=== PATIENT | male | born 1950 | race Caucasian/White ===

== ENCOUNTER → 2017-03-13 | Outpatient (CLI) | payer MEDICARE, MEDICAID ==
[2017-03-13 11:12] LABS: ABSOLUTE EOSINOPHILS # (AUTO) 0.3 10^3/uL (0.0-0.6); ABSOLUTE LYMPHOCYTES (AUTO) 1.4 10^3/uL (0.5-4.7); ABSOLUTE MONOCYTES (AUTO) 0.5 10^3/uL (0.1-1.4); BASOPHILS % (AUTO) 0.5 % (0-2); EOSINOPHILS % (AUTO) 4.7 % (0-6); HEMATOCRIT 37.7 % (37.9-51.0); HEMOGLOBIN 13.1 g/dL (13.5-17.0); HGB HCT DIFFERENCE 1.6; LYMPHOCYTES % (AUTO) 21.8 % (13-45); MEAN CORPUSCULAR HEMOGLOBIN 30.5 pg (27.0-33.4); MEAN CORPUSCULAR HGB CONC 34.8 g/dL (32.0-36.0); MEAN CORPUSCULAR VOLUME 88 fl (80-97); MONOCYTES % (AUTO) 8.7 % (3-13); RED BLOOD COUNT 4.31 10^6/uL (4.35-5.55); SEGMENTED NEUTROPHILS % (AUTO) 64.3 % (42-78); WHITE BLOOD COUNT 6.3 10^3/uL (4.0-10.5)
[2017-03-13 11:35] LABS: ALANINE AMINOTRANSFERASE 87 U/L (21-72); ALBUMIN 4.3 g/dL (3.5-5.0); ALKALINE PHOSPHATASE 206 U/L (38-126); ANION GAP 13 (5-19); ASPARTATE AMINO TRANSFERASE 71 U/L (17-59); BILIRUBIN,DIRECT 0.6 mg/dL (0.0-0.4); BILIRUBIN,TOTAL 1.3 mg/dL (0.2-1.3); BLOOD UREA NITROGEN 14 mg/dL (7-20); CALCIUM 9.3 mg/dL (8.4-10.2); CARBON DIOXIDE 25 mmol/L (22-30); CHLORIDE 106 mmol/L (98-107); CHOLESTEROL 164.24 mg/dL (0-200); CREATININE RESULT 1.15 mg/dL (0.52-1.25); Direct HDL 40 mg/dL (>40); GLUCOSE 93 mg/dL (75-110); POTASSIUM 3.9 mmol/L (3.6-5.0); SODIUM 143.8 mmol/L (137-145); TOTAL PROTEIN 7.8 g/dL (6.3-8.2); TRIGLYCERIDES 201 mg/dL (<150); URIC ACID 4.7 mg/dL (3.5-8.5)
[2017-03-13 11:46] LABS: DIRECT LDL 72 mg/dL (<100)
[2017-03-13 12:09] LABS: VLDL CHOLESTEROL 40.2 mg/dL (10-31)
== END ==
LOC: OD 10:04
PROVIDERS: ATTEND Internal Medicine
DX: E11.9 Type 2 diabetes mellitus without complications (principal); I10 Essential (primary) hypertension; E78.5 Hyperlipidemia, unspecified; R35.1 Nocturia; M10.9 Gout, unspecified
CPT/HCPCS: 36415; 80053; 80061; 82043; 83036; 84153; 84443; 84550; 85025

== ENCOUNTER → 2018-06-25 | Outpatient (CLI) | payer MEDICARE, MEDICAID ==
[2018-06-25 09:06] LABS: ABSOLUTE EOSINOPHILS # (AUTO) 0.3 10^3/uL (0.0-0.6); ABSOLUTE LYMPHOCYTES (AUTO) 1.5 10^3/uL (0.5-4.7); ABSOLUTE MONOCYTES (AUTO) 0.6 10^3/uL (0.1-1.4); ABSOLUTE NEUT (AUTO) 4.4 10^3/uL (1.7-8.2); BASOPHILS % (AUTO) 0.7 % (0-2); EOSINOPHILS % (AUTO) 4.6 % (0-6); HEMATOCRIT 39.7 % (37.9-51.0); HEMOGLOBIN 13.9 g/dL (13.5-17.0); LYMPHOCYTES % (AUTO) 21.8 % (13-45); MEAN CORPUSCULAR HEMOGLOBIN 30.7 pg (27.0-33.4); MEAN CORPUSCULAR HGB CONC 34.9 g/dL (32.0-36.0); MEAN CORPUSCULAR VOLUME 88 fl (80-97); MONOCYTES % (AUTO) 9.3 % (3-13); PLATELET COUNT 140 10^3/uL (150-450); RED BLOOD COUNT 4.51 10^6/uL (4.35-5.55); RED CELL DISTRIBUTION WIDTH 14.7 % (11.5-14.0); SEGMENTED NEUTROPHILS % (AUTO) 63.6 % (42-78); TOTAL CELLS COUNTED % (AUTO) 100 %; WHITE BLOOD COUNT 6.9 10^3/uL (4.0-10.5)
[2018-06-25 09:34] LABS: ALANINE AMINOTRANSFERASE 53 U/L (21-72); ALBUMIN 3.5 g/dL (3.5-5.0); ALKALINE PHOSPHATASE 163 U/L (38-126); ANION GAP 5 (5-19); ASPARTATE AMINO TRANSFERASE 60 U/L (17-59); BILIRUBIN,DIRECT 0.4 mg/dL (0.0-0.4); BILIRUBIN,TOTAL 1.8 mg/dL (0.2-1.3); BLOOD UREA NITROGEN 14 mg/dL (7-20); CALCIUM 8.7 mg/dL (8.4-10.2); CARBON DIOXIDE 31 mmol/L (22-30); CHLORIDE 106 mmol/L (98-107); CHOLESTEROL 137.71 mg/dL (0-200); GLUCOSE 71 mg/dL (75-110); POTASSIUM 3.8 mmol/L (3.6-5.0); TOTAL PROTEIN 6.7 g/dL (6.3-8.2); TRIGLYCERIDES 76 mg/dL (<150)
[2018-06-25 09:45] LABS: DIRECT LDL 68 mg/dL (<100)
== END ==
LOC: LAB 08:50
PROVIDERS: ATTEND Family Medicine Geriatric Medicine
DX: E11.8 Type 2 diabetes mellitus with unspecified complications (principal); I10 Essential (primary) hypertension; E78.5 Hyperlipidemia, unspecified; E03.9 Hypothyroidism, unspecified
CPT/HCPCS: 36415; 80053; 80061; 83036; 84443; 85025

== ENCOUNTER → 2018-07-31 | Outpatient (CLI) | payer MEDICARE, MEDICAID ==
[~2018-07-31] MED LIST: REGADENOSON INJ 0.4 MG/5 ML DISP.SYRIN IV ONE
--- NOTE | 2018-08-03 20:54 | DRAGON STRESS TEST REPORT ---
Intravenous Lexiscan Cardiolite stress test using single photon emmision computerized tomography. Date of procedure: 07/31/2018. Ordering Provider: Dr. Sanjay Beckford. Patient's status: Out Patient. Indication: Exertional dyspnea. Coronary risk factors: Age, diabetes mellitus, hypertension, dyslipidemia, and family history of coronary artery disease. Resting EKG: Sinus Rhythm. Within Normal Limits Stress EKG: No changes of ischemia. The patient had no chest pain or discomfort, and there were no arrhythmias seen. Reason for termination: Protocol. Conclusions: Normal EKG and hemodynamic response to IV Lexiscan. Nuclear data: At rest the patient was given 12.42 millicuries of technetium 99m sestamibi injected intravenously. As per protocol rest non gated SPECT images were obtained. Subsequently the patient was given intravenous Lexiscan at a dose of 0.4 mg in 5 mL intravenously, followed by flush with normal saline. Subsequently the stress dose of 36.4 millicuries of technetium 99m sestamibi was injected intravenously. As per protocol stress gated images were obtained. Nuclear interpretation: Review of images showed that all segments of the myocardium had normal perfusion at rest, and normal perfusion post stress with IV Lexiscan. All segments of the myocardium had normal motion, contraction, and thickening by gated study. T. I D. ratio was normal at 0.96. There is no transient ischemic dilatation of the left ventricle. Computer read rest, and stress left ventricular ejection fraction were 54 %, and 57 %, respectively. Visually both the stress and rest ejection fractions were normal, and greater than 55%. Conclusion: 1. There is no scintigraphic evidence of Lexiscan induced myocardial ischemia. 2. There is no scintigraphic evidence of myocardial infarction/scar. Recommendations: Aggressive risk factor modification, and treating the underlying co- morbidities. [facility]
== END ==
LOC: RAD 07:11
PROVIDERS: ATTEND Internal Medicine
DX: R06.09 Other forms of dyspnea (principal)
CPT/HCPCS: 93017; 78452; A9500; J2785; Q9969

== ENCOUNTER → 2018-09-19 | Outpatient (CLI) | payer MEDICARE, MEDICAID ==
[2018-09-19 09:34] LABS: ANION GAP 7 (5-19); BLOOD UREA NITROGEN 18 mg/dL (7-20); CALCIUM 8.4 mg/dL (8.4-10.2); CARBON DIOXIDE 29 mmol/L (22-30); CHLORIDE 106 mmol/L (98-107); GLUCOSE 152 mg/dL (75-110); POTASSIUM 3.1 mmol/L (3.6-5.0); SODIUM 141.9 mmol/L (137-145)
--- NOTE | 2018-09-19 11:21 | RADIOLOGY REPORT (SQ) ---
EXAM DESCRIPTION: VENOUS UNILATERAL LOWER COMPLETED DATE/TIME: 09/19/2018 10:30 am REASON FOR STUDY: RLE PAIN I82.401 ACUTE EMBOLISM AND THOMBOS UNSP DEEP VEINS OF R LOW COMPARISON: None. TECHNIQUE: Dynamic and static pyle scale and color images acquired of the right leg venous system. S elected spectral images acquired with additional compression and augmentation maneuvers. The contrala teral common femoral vein and saphenofemoral junction were also imaged. Images stored on PACS. LIMITATIONS: None. FINDINGS: COMMON FEMORAL: Normal phasicity, compression and augmentation. No visualized echogenic ma terial on pyle scale. No defects on color images. FEMORAL: Normal compression and augmentation. No visualized echogenic material on pyle scale. No defe cts on color images. POPLITEAL: Normal compression, augmentation. No visualized echogenic material on pyle scale. No defec ts on color images. CALF VESSELS: Normal compression, augmentation. No visualized echogenic material on pyle scale. No de fects on color images. GSV and SSV: Normal compression, augmentation. No visualized echogenic material on pyle scale. No def ects on color images. ANY DEEP VENOUS INSUFFICIENCY: Not evaluated. ANY EVIDENCE OF POPLITEAL CYST: No. OTHER: No other significant finding. CONTRALATERAL COMMON FEMORAL VEIN AND SAPHENOFEMORAL JUNCTION: Normal phasicity, compression and augmentation. No visualized echogenic material on pyle scale. No de fects on color images. IMPRESSION: NO EVIDENCE DVT OR SVT IN THE RIGHT LEG. TECHNICAL DOCUMENTATION: JOB ID: [id number] [employer]- All Rights Reserved Reading location - IP/workstation name: [email or web address]
== END ==
LOC: SP 09:00
PROVIDERS: ATTEND Internal Medicine
DX: I82.401 Acute embolism and thrombosis of unspecified deep veins of right lower extremity (principal); N19 Unspecified kidney failure; E83.42 Hypomagnesemia
CPT/HCPCS: 36415; 80048; 83735; 93971

== ENCOUNTER → 2018-10-22 | Outpatient (CLI) | payer MEDICARE, MEDICAID ==
[2018-10-16 14:03] LABS: ABSOLUTE EOSINOPHILS # (AUTO) 0.3 10^3/uL (0.0-0.6); ABSOLUTE LYMPHOCYTES (AUTO) 0.8 10^3/uL (0.5-4.7); ABSOLUTE MONOCYTES (AUTO) 0.7 10^3/uL (0.1-1.4); ABSOLUTE NEUT (AUTO) 4.2 10^3/uL (1.7-8.2); BASOPHILS % (AUTO) 0.4 % (0-2); EOSINOPHILS % (AUTO) 4.9 % (0-6); HEMATOCRIT 34.5 % (37.9-51.0); HEMOGLOBIN 11.8 g/dL (13.5-17.0); LYMPHOCYTES % (AUTO) 13.8 % (13-45); MEAN CORPUSCULAR HGB CONC 34.3 g/dL (32.0-36.0); MEAN CORPUSCULAR VOLUME 88 fl (80-97); MONOCYTES % (AUTO) 11.4 % (3-13); PLATELET COUNT 128 10^3/uL (150-450); RED BLOOD COUNT 3.94 10^6/uL (4.35-5.55); RED CELL DISTRIBUTION WIDTH 14.5 % (11.5-14.0); SEGMENTED NEUTROPHILS % (AUTO) 69.5 % (42-78); TOTAL CELLS COUNTED % (AUTO) 100 %
[2018-10-16 14:28] LABS: ALANINE AMINOTRANSFERASE 42 U/L (21-72); ALBUMIN 2.7 g/dL (3.5-5.0); ALKALINE PHOSPHATASE 162 U/L (38-126); ANION GAP 6 (5-19); ASPARTATE AMINO TRANSFERASE 48 U/L (17-59); BILIRUBIN,DIRECT 0.4 mg/dL (0.0-0.4); BILIRUBIN,TOTAL 1.4 mg/dL (0.2-1.3); BLOOD UREA NITROGEN 14 mg/dL (7-20); CALCIUM 8.4 mg/dL (8.4-10.2); CARBON DIOXIDE 28 mmol/L (22-30); CHLORIDE 104 mmol/L (98-107); GLUCOSE 94 mg/dL (75-110); POTASSIUM 3.4 mmol/L (3.6-5.0); TOTAL PROTEIN 5.8 g/dL (6.3-8.2)
--- NOTE | 2018-10-22 09:50 | RADIOLOGY REPORT (SQ) ---
EXAM DESCRIPTION: CT ABD/PELVIS WITH IV ORAL COMPLETED DATE/TIME: 10/22/2018 8:38 am REASON FOR STUDY: DVRTCLOS OF INTEST, PART UNSP, W/O PERF OR ABSCESS W/O BLEED (K57.90) K21.9 GASTR O-ESOPHAGEAL REFLUX DISEASE WITHOUT ESOPHAGITIS K57.90 DVRTCLOS OF INTEST, PART UNSP, W/O PERF OR AB SCESS W/ COMPARISON: Abdominal ultrasound 06/08/2011 CT abdomen pelvis 01/28/2014 TECHNIQUE: CT scan of the abdomen and pelvis performed using helical scanning technique with dynamic intravenous contrast injection. Patient drank oral contrast. Images reviewed with lung, soft tissue , and bone windows. Reconstructed coronal and sagittal MPR images reviewed. Delayed images for evalua tion of the urinary system also acquired. All images stored on PACS. All CT scanners at this facility use dose modulation, iterative reconstruction, and/or weight based d osing when appropriate to reduce radiation dose to as low as reasonably achievable (ALARA). [facility]: Dose Right [facility]: CareDose [facility]: Dose Right [facility]: Teradose 4D [facility]: Vascular Imaging CONTRAST TYPE AND DOSE: contrast/concentration: Isovue 350.00 mg/ml; Total Contrast Delivered: 90.0 ml; Total Saline Delivered: 70.0 ml RENAL FUNCTION: Creatinine 1.08 RADIATION DOSE: CT Rad equipment meets quality standard of care and radiation dose reduction techniq ues were employed. CTDIvol: 7.2 - 8.4 mGy. DLP: 877 mGy-cm.. LIMITATIONS: None. FINDINGS: LOWER CHEST: Trace bilateral pleural effusions are present with bibasilar atelectasis. Mi ld cardiomegaly. Small hiatal hernia. LIVER: Small with nodular contour from cirrhosis. Recannulized umbilical vein. Moderate ascites bon e SPLEEN: 14 cm in length. Multiple varices at the splenic hilum PANCREAS: No masses. No significant calcifications. No adjacent inflammation or peripancreatic fluid collections. Pancreatic duct not dilated. GALLBLADDER: No identified stones by CT criteria. No inflammatory changes to suggest cholecystitis. ADRENAL GLANDS: No significant masses or asymmetry. RIGHT KIDNEY AND URETER: No solid masses. 12 mm right midpole renal stone, measuring 1,160 Hounsfie ld units. No hydronephrosis or hydroureter. LEFT KIDNEY AND URETER: No solid masses. 2.5 cm left midpole renal cortical cyst. No significant ca lcifications. No hydronephrosis or hydroureter. AORTA AND VESSELS: No aneurysm. No dissection. Renal arteries, SMA, celiac without stenosis. RETROPERITONEUM: No retroperitoneal adenopathy, hemorrhage or masses. BOWEL AND PERITONEAL CAVITY: Patient drank oral contrast. No bowel obstruction. No CT evidence of c olonic diverticulosis. Moderate amount of ascites in the abdomen pelvis APPENDIX: Normal. PELVIS: Old right inguinal hernia repair with calcified nodule along the right inguinal canal formerly [facility] ed from 2013, measuring about 3 cm in size. Moderate pelvic Free fluid. 7 mm bladder stone on axial image 91. ABDOMINAL WALL: No masses. No hernias. BONES: No significant or acute findings. OTHER: No other significant finding. IMPRESSION: Cirrhosis, portal hypertension and ascites Patient drank oral contrast. No CT evidence of bowel obstruction or diverticulitis TECHNICAL DOCUMENTATION: JOB ID: [id number] Quality ID # [id number]: Final reports with documentation of one or more dose reduction techniques (e.g., Au tomated exposure control, adjustment of the mA and/or kV according to patient size, use of iterative reconstruction technique) 2010 [employer]- All Rights Reserved Reading location - IP/workstation name: [email or web address]
== END ==
LOC: RAD 10-16 13:09
PROVIDERS: ATTEND Internal Medicine
DX: K57.90 Diverticulosis of intestine, part unspecified, without perforation or abscess without bleeding (principal); K21.9 Gastro-esophageal reflux disease without esophagitis; R53.83 Other fatigue
CPT/HCPCS: 36415; 74177; 80053; 85025

== ENCOUNTER 2019-10-31 11:46 | Observation (INO) | payer MEDICARE, MEDICAID ==
[2019-10-31] MEDS ORDERED: NORMAL SALINE 1000 ML 1,000 ML IV ONE ×2 (12:07→13:52)
--- NOTE | 2019-10-31 12:09 | ER Document Report ---
ED Medical Screen (RME) - General Chief Complaint: Blurred Vision Stated Complaint: BLURRED VISION Time Seen by Provider: 10/31/19 12:02 Primary Care Provider: ORLANDO CARRANZA MD [Primary Care Provider] - Follow up as needed Mode of Arrival: Ambulatory Information source: Patient Notes: 69-year-old male patient presenting to the emergency department chief complaint of her blurred vision over the last 3 days. Patient also reports excessive thirst and excessive urination over the last 1 to 2 weeks. He states that he used to be an insulin-dependent diabetic however 6 months ago his doctor told him that his "diabetes resolved" and took him off of his insulin. He states he took his blood sugar this morning and it was over 400. He denies any current nausea or vomiting but reports he has intermittent nausea with vomiting, last time he vomited was 2 weeks ago. Exam: Patient alert, oriented, no acute distress noted. Lung sounds clear and equal bilaterally. I have greeted and performed a rapid initial assessment of this patient. A comprehensive ED assessment and evaluation of the patient, analysis of test results and completion of the medical decision making process will be conducted by additional ED providers. I have specifically instructed the patient or family members with the patient to immediately return to any nursing staff should anything change in the patient's condition or with their chief complaint. TRAVEL OUTSIDE OF THE [place] IN LAST 30 DAYS: No - Related Data Allergies/Adverse Reactions: Penicillins Allergy (Verified 05/12/13 11:10) Past Medical History - Past Medical History Cardiac Medical History: Reports: Hx Hypertension Endocrine Medical History: Reports: Hx Diabetes Mellitus Type 1, Hx Diabetes Mellitus Type 2 - Immunizations Hx Diphtheria, Pertussis, Tetanus Vaccination: Yes Physical Exam - Vital signs Vitals: Temp Pulse Resp BP Pulse Ox 97.7 F 56 L 18 154/80 H 98 10/31/19 11:52 10/31/19 11:52 10/31/19 11:52 10/31/19 11:52 10/31/19 11:52 Course - Vital Signs Vital signs: Temp Pulse Resp BP Pulse Ox 97.7 F 56 L 18 154/80 H 98 10/31/19 11:52 10/31/19 11:52 10/31/19 11:52 10/31/19 11:52 10/31/19 11:52 Doctor's Discharge - Discharge Referrals: ORLANDO CARRANZA MD [Primary Care Provider] - Follow up as needed
[2019-10-31 12:39] LABS: ABSOLUTE EOSINOPHILS # (AUTO) 0.4 10^3/uL (0.0-0.6); ABSOLUTE LYMPHOCYTES (AUTO) 1.5 10^3/uL (0.5-4.7); ABSOLUTE MONOCYTES (AUTO) 0.6 10^3/uL (0.1-1.4); ABSOLUTE NEUT (AUTO) 3.4 10^3/uL (1.7-8.2); BASOPHILS % (AUTO) 0.6 % (0-2); EOSINOPHILS % (AUTO) 6.2 % (0-6); HEMATOCRIT 33.8 % (37.9-51.0); HEMOGLOBIN 12.2 g/dL (13.5-17.0); LYMPHOCYTES % (AUTO) 24.8 % (13-45); MEAN CORPUSCULAR HEMOGLOBIN 32.5 pg (27.0-33.4); MEAN CORPUSCULAR HGB CONC 36.3 g/dL (32.0-36.0); MEAN CORPUSCULAR VOLUME 90 fl (80-97); MONOCYTES % (AUTO) 10.9 % (3-13); PLATELET COUNT 107 10^3/uL (150-450); RED BLOOD COUNT 3.77 10^6/uL (4.35-5.55); RED CELL DISTRIBUTION WIDTH 13.4 % (11.5-14.0); SEGMENTED NEUTROPHILS % (AUTO) 57.5 % (42-78); TOTAL CELLS COUNTED % (AUTO) 100 %; WHITE BLOOD COUNT 5.9 10^3/uL (4.0-10.5)
[2019-10-31 12:49] LABS: VENOUS BLOOD BASE EXCESS -1.2 mmol/L; VENOUS BLOOD HCO3 23.3 mmol/L (20-32); VENOUS BLOOD PCO2 38.8 mmHg (35-63); VENOUS BLOOD PH 7.4 (7.30-7.42)
--- NOTE | 2019-10-31 12:52 | ER Document Report ---
ED General - General Chief Complaint: Blurred Vision Stated Complaint: BLURRED VISION Time Seen by Provider: 10/31/19 12:02 Primary Care Provider: ORLANDO CARRANZA MD [Primary Care Provider] - Follow up as needed Mode of Arrival: Ambulatory Notes: Patient is 69-year-old male who presents emergency department with a chief complaint of blurred vision. Patient states that he has been having blurred vision for the past 2 to 3 weeks. Patient states that he was taken off his diabetes medication because his diabetes "went away" per his primary care provider. Patient checked his blood sugar this morning and states that it was in the 400s. States that he has urinary frequency. TRAVEL OUTSIDE OF THE [place] IN LAST 30 DAYS: No - Related Data Allergies/Adverse Reactions: oxycodone Allergy (Verified 10/31/19 12:09) Generalized Itching Penicillins Allergy (Verified 05/12/13 11:10) Past Medical History - General Information source: Patient - Social History Smoking Status: Never Smoker Frequency of alcohol use: None Drug Abuse: None Family History: Reviewed & Not Pertinent Patient has homicidal ideation: No - Past Medical History Cardiac Medical History: Reports: Hx Hypertension Endocrine Medical History: Reports: Hx Diabetes Mellitus Type 1, Hx Diabetes Mellitus Type 2 - Immunizations Hx Diphtheria, Pertussis, Tetanus Vaccination: Yes Review of Systems - Review of Systems Notes: REVIEW OF SYSTEMS: CONSTITUTIONAL : Denies recent illness. Denies recent unintentional weight loss. Denies fever, chills, or sweats. EENT: See HPI. Denies nasal or sinus congestion. CARDIOVASCULAR: Denies chest pain. RESPIRATORY: Denies shortness of breath, cough, congestion, difficulty breathing, or wheezing. GASTROINTESTINAL: Denies nausea, vomiting, and diarrhea. Denies abdominal pain. Denies constipation. GENITOURINARY: See HPI. MUSCULOSKELETAL: Denies neck and back pain. Denies joint pain or swelling. SKIN: Denies rash, itchiness, or lesions HEMATOLOGIC : Denies easy bruising or bleeding. LYMPHATIC: Denies swollen, painful, enlarged glands. NEUROLOGICAL: Denies no numbness or tingling denies weakness. Denies headache. Denies altered mental status. Denies alteration in speech. PSYCHIATRIC: Denies stress, anxiety, alteration in sleep patterns, or depression. All other systems reviewed and negative. Physical Exam - Vital signs Vitals: Temp Pulse Resp BP Pulse Ox 97.7 F 56 L 18 154/80 H 98 10/31/19 11:52 10/31/19 11:52 10/31/19 11:52 10/31/19 11:52 10/31/19 11:52 - Notes Notes: PHYSICAL EXAMINATION: GENERAL: Appears well, mildly disheveled, no acute distress. HEAD: Normocephalic, atraumatic. EYES: PERRL, conjunctiva normal, all extraocular movements intact, sclera non icteric ENT: Moist mucous membranes. NECK: Supple, no noticeable swelling, redness, rash. Normal range of motion. LUNGS: Equal breath sounds bilaterally and clear to auscultation. No wheezes ra les or rhonchi. CARDIOVASCULAR: S1-S2, regular rate, regular rhythm. Radial pulses 2+, normal. ABDOMEN: Normoactive bowel sounds. Soft, nontender, no guarding, no rebound tenderness, and no masses palpated. EXTREMITIES: Normal strength and range of motion, no pitting or edema. No cyanosis. NEUROLOGICAL: Moves all extremities upon command. Strength 5/5 in all extremities. PSYCH: Normal mood, normal affect. SKIN: Warm, dry. No rash, lesions, ulcerations noted. Normal skin turgor. Course - Re-evaluation Re-evalutation: 10/31/19 14:04 Hematology is unremarkable. No leukocytosis noted. Mild anemia noted over 12.2 hemoglobin hematocrit of 33.8. Chemistries show a blood sugar of 377. His hemoglobin A1c is in 9. He also has an elevated potassium of 5.1 and an acute kidney injury of creatinine of 2.45. Paged the on-call hospitalist to attempt to get patient admitted for acute kidney injury. I also spoke with the patient's next of kin, Prem who is his brother. [phone]. Notified him of patient's status. 10/31/19 14:47 I spoke with CRISTOBAL Elias from the hospitalist service. Patient will be admitted to the medical floor. I also notified the patient's brother Prem in regards to this. - Vital Signs Vital signs: Temp Pulse Resp BP Pulse Ox 97.7 F 56 L 18 154/80 H 98 10/31/19 12:03 10/31/19 11:52 10/31/19 11:52 10/31/19 11:52 10/31/19 11:52 - Laboratory Result Diagrams: 10/31/19 12:28 10/31/19 12:28 Laboratory results interpreted by me: 10/31/19 10/31/19 10/31/19 12:28 12:28 12:28 RBC 3.77 L Hgb 12.2 L Hct 33.8 L MCHC 36.3 H Plt Count 107 L Eos % (Auto) 6.2 H Sodium 132.7 L Potassium 5.1 H Carbon Dioxide 21 L BUN 44 H Creatinine 2.45 H Est GFR ( Amer) 32 L Est GFR (MDRD) Non-Af 26 L Glucose 377 H Hemoglobin A1c % 9.0 H Alkaline Phosphatase 154 H Urine Glucose (UA) 10/31/19 12:30 RBC Hgb Hct MCHC Plt Count Eos % (Auto) Sodium Potassium Carbon Dioxide BUN Creatinine Est GFR ( Amer) Est GFR (MDRD) Non-Af Glucose Hemoglobin A1c % Alkaline Phosphatase Urine Glucose (UA) >=500 H Discharge - Discharge Clinical Impression: Acute kidney injury Uncontrolled diabetes mellitus Qualifiers: Diabetes mellitus type: type 2 Glycemic state: with hyperglycemia Qualified Code(s): E11.65 - Type 2 diabetes mellitus with hyperglycemia Condition: Stable Disposition: ADMITTED OBSERVATION Admitting Provider: Syd (Hospitalist) Unit Admitted: Medical Floor Referrals: ORLANDO CARRANZA MD [Primary Care Provider] - Follow up as needed
[2019-10-31 12:59] LABS: APPEARANCE,URINE CLEAR; BILIRUBIN,URINE NEGATIVE (NEGATIVE); COLOR,URINE YELLOW; GLUCOSE, URINE >=500 mg/dL (NEGATIVE); KETONES,URINE NEGATIVE (NEGATIVE); LEUKOCYTE ESTERASE,URINE NEGATIVE (NEGATIVE); NITRITE,URINE NEGATIVE (NEGATIVE); PROTEIN,URINE NEGATIVE (NEGATIVE); URINE SPECIFIC GRAVITY 1.018; UROBILINOGEN,URINE NEGATIVE mg/dL (<2.0)
[2019-10-31 13:02] LABS: ALBUMIN 4.3 g/dL (3.5-5.0); ALKALINE PHOSPHATASE 154 U/L (38-126); ANION GAP 12 (5-19); ASPARTATE AMINO TRANSFERASE 39 U/L (17-59); BILIRUBIN,DIRECT 0.2 mg/dL (0.0-0.4); BILIRUBIN,TOTAL 1.3 mg/dL (0.2-1.3); BLOOD UREA NITROGEN 44 mg/dL (7-20); CALCIUM 9.2 mg/dL (8.4-10.2); CARBON DIOXIDE 21 mmol/L (22-30); CHLORIDE 100 mmol/L (98-107); GLUCOSE 377 mg/dL (75-110); POTASSIUM 5.1 mmol/L (3.6-5.0); TOTAL PROTEIN 7.8 g/dL (6.3-8.2)
[2019-10-31] MEDS ORDERED: ACETAMINOPHEN 325 MG TABLET PO PRN (15:43)
[2019-10-31] MEDS ORDERED: ONDANSETRON 4 MG TAB.RAPDIS PO PRN (15:43)
[2019-10-31] MEDS ORDERED: DEXTROSE 40% GEL 15 GM TUBE PO PRN ×4 (15:43→15:59)
[2019-10-31] MEDS ORDERED: TEMAZEPAM 7.5 MG CAPSULE PO PRN (15:43)
[2019-10-31] MEDS ORDERED: GLUCAGON,HUMAN RECOMB 1 MG INJ IM PRN ×2 (15:43→15:59)
[2019-10-31] MEDS ORDERED: ONDANSETRON HCL INJ/PF 4 MG/2 ML SDV IV PRN (15:43)
[2019-10-31] MEDS ORDERED: DEXTROSE 50%-WATER 25 GM/50 ML DISP.SYRIN IV PRN ×4 (15:43→15:59)
[2019-10-31] MEDS ORDERED: MAG HYDROX/AL HYDROX/SIMETH SUSP 30 ML UDCUP PO PRN (15:43)
--- NOTE | 2019-10-31 16:25 | PDOC H&P ---
History of Present Illness Admission Date/PCP: 10/31/19 14:54 ORLANDO CARRANZA MD History of Present Illness: SURAJ ENNIS is a 69 year old male comes in after not having any of his med icine for diabetes for probably close to 6 months to a year. She states he was told by his physicians that he no longer needed it that his diabetes was under control. Patient denies vomiting , states that for the last week or 2 has had blurred vision much like when he was first diagnosed with diabetes 10 years ago. Patient states that when he was last taking medicine he was on some sort of insulin pen that he took weekly. Patient also states about 6 months ago he was told he had cirrhosis of the liver but he says he is never drank any alcohol.. He has not been to see a database dba yet. 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 Only other medical problem includes hypertension. Past Medical History Cardiac Medical History: Reports: Hypertension Endocrine Medical History: Reports: Diabetes Mellitus Type 1, Diabetes Mellitus Type 2 GI Medical History: Reports: Cirrhosis Social History Smoking Status: Never Smoker - Advance Directive Resuscitation Status: Full Code Family History Family History: Reviewed & Not Pertinent Parental Family History Reviewed: No Children Family History Reviewed: No Sibling(s) Family History Reviewed.: No Medication/Allergy Home Medications: Furosemide [Lasix 20 mg Tablet] 20 mg PO DAILY 10/31/19 Gabapentin [Neurontin 300 mg Capsule] 600 mg PO QHS 10/31/19 Lisinopril [Prinivil 10 mg Tablet] 10 mg PO DAILY 10/31/19 Potassium Chloride [Klor-Con 10 Meq Tablet ER] 20 meq PO DAILY 10/31/19 Simvastatin [Zocor 40 mg Tablet] 40 mg PO QHS 10/31/19 Spironolactone [Aldactone] 50 mg PO DAILY 10/31/19 Allergies/Adverse Reactions: oxycodone Allergy (Verified 10/31/19 12:09) Generalized Itching Penicillins Allergy (Verified 05/12/13 11:10) Review of Systems Constitutional: PRESENT: other - Blurred vision. ABSENT: chills, fever(s), he adache(s), weight gain, weight loss Cardiovascular: ABSENT: chest pain, dyspnea on exertion, edema, orthropnea, palpitations Respiratory: ABSENT: cough, hemoptysis Gastrointestinal: ABSENT: abdominal pain, constipation, diarrhea, hematemesis, hematochezia, nausea, vomiting Neurological: ABSENT: abnormal gait, abnormal speech, confusion, dizziness, focal weakness, syncope Psychiatric: ABSENT: anxiety, depression, homidical ideation, suicidal ideation Physical Exam Vital Signs: Temp Pulse Resp BP Pulse Ox 97.7 F 56 L 18 154/80 H 98 10/31/19 12:03 10/31/19 11:52 10/31/19 11:52 10/31/19 11:52 10/31/19 11:52 Intake & Output 10/30/19 10/31/19 11/01/19 06:59 06:59 06:59 Intake Total 1999 Balance 1999 Weight 74.1 kg General appearance: PRESENT: no acute distress, other - Sitting up in bed talking in full sentences in no distress Respiratory exam: PRESENT: clear to auscultation jannet. ABSENT: rales, rhonchi, w heezes Cardiovascular exam: PRESENT: RRR. ABSENT: diastolic murmur, rubs, systolic murmur Neurological exam: PRESENT: alert, awake, oriented to person, oriented to place, oriented to time, oriented to situation, CN II-XII grossly intact. ABSENT: mo tor sensory deficit Psychiatric exam: PRESENT: flat affect Results Laboratory Results: 10/31/19 12:28 10/31/19 12:28 10/31/19 10/31/19 10/31/19 12:28 12:28 12:28 WBC 5.9 RBC 3.77 L Hgb 12.2 L Hct 33.8 L MCV 90 MCH 32.5 MCHC 36.3 H RDW 13.4 Plt Count 107 L Seg Neutrophils % 57.5 VBG pH 7.40 VBG pCO2 38.8 VBG HCO3 23.3 VBG Base Excess -1.2 Sodium 132.7 L Potassium 5.1 H Chloride 100 Carbon Dioxide 21 L Anion Gap 12 BUN 44 H Creatinine 2.45 H Est GFR ( Amer) 32 L Glucose 377 H Calcium 9.2 Total Bilirubin 1.3 AST 39 Alkaline Phosphatase 154 H Total Protein 7.8 Albumin 4.3 Urine Color Urine Appearance Urine pH Ur Specific [place] Urine Protein Urine Glucose (UA) Urine Ketones Urine Blood Urine Nitrite Ur Leukocyte Esterase Urine WBC (Auto) Urine RBC (Auto) 10/31/19 12:30 WBC RBC Hgb Hct MCV MCH MCHC RDW Plt Count Seg Neutrophils % VBG pH VBG pCO2 VBG HCO3 VBG Base Excess Sodium Potassium Chloride Carbon Dioxide Anion Gap BUN Creatinine Est GFR ( Amer) Glucose Calcium Total Bilirubin AST Alkaline Phosphatase Total Protein Albumin Urine Color YELLOW Urine Appearance CLEAR Urine pH 5.0 Ur Specific [place] 1.018 Urine Protein NEGATIVE Urine Glucose (UA) >=500 H Urine Ketones NEGATIVE Urine Blood NEGATIVE Urine Nitrite NEGATIVE Ur Leukocyte Esterase NEGATIVE Urine WBC (Auto) 1 Urine RBC (Auto) 0 Assessment and Plan - Diagnosis (1) Hypertension Is this a current diagnosis for this admission?: Yes (2) Cirrhosis of liver Is this a current diagnosis for this admission?: Yes (3) Acute kidney injury Is this a current diagnosis for this admission?: Yes (4) Uncontrolled diabetes mellitus Qualifiers: Diabetes mellitus type: type 2 Glycemic state: with hyperglycemia Qualified Code(s): E11.65 - Type 2 diabetes mellitus with hyperglycemia Is this a current diagnosis for this admission?: Yes - Plan Summary Summary: We will put patient in the hospital for IV fluids start him on some Lantus insulin tonight putting him on a sliding scale. No signs of DKA and anion gap is 12. Potassium 5.1 creatinine 2.45 BUN of 44. Hemoglobin A1c is greater than 9 Patient will need to have his cirrhosis looked at further as an outpatient although he is already on Aldactone as well as Lasix All of patient's questions were answered and he appears to be medically stable - Time Time Spent with patient: 35 or more minutes
[2019-10-31 16:36] LABS: INTERNATIONAL RATION (INR) 1.31; PROTHROMBIN TIME 16.4 SEC (11.4-15.4)
[2019-10-31] MEDS: NORMAL SALINE 1000 ML 1,000 ML IV PRN ×2 (16:37→23:33)
[2019-10-31] MEDS: INSULIN LISPRO 100 UNIT/ML 3 ML VIAL SUBCUT SCH ×2 (16:37→22:47)
--- NOTE | 2019-10-31 16:53 | RADIOLOGY REPORT (SQ) ---
EXAM DESCRIPTION: CHEST 2 VIEWS IMAGES COMPLETED DATE/TIME: 10/31/2019 4:27 pm REASON FOR STUDY: cirrhosis of liver COMPARISON: None. EXAM PARAMETERS: NUMBER OF VIEWS: two views TECHNIQUE: Digital Frontal and Lateral radiographic views of the chest acquired. RADIATION DOSE: NA LIMITATIONS: none FINDINGS: LUNGS AND PLEURA: No opacities, masses or pneumothorax. No pleural effusion. MEDIASTINUM AND HILAR STRUCTURES: No masses or contour abnormalities. HEART AND VASCULAR STRUCTURES: Heart normal size. No evidence for failure. BONES: No acute findings. HARDWARE: None in the chest. OTHER: No other significant finding. IMPRESSION: NO ACUTE RADIOGRAPHIC FINDING IN THE CHEST. TECHNICAL DOCUMENTATION: JOB ID: [id number] 2010 [email or web address]- All Rights Reserved Reading location - IP/workstation name: [email or web address]
[2019-10-31] MEDS ORDERED: GABAPENTIN 300 MG CAPSULE PO SCH (22:00)
[2019-10-31] MEDS ORDERED: SIMVASTATIN 40 MG TABLET PO SCH (22:00)
[2019-10-31] MEDS ORDERED: INSULIN GLARGINE,HUM.REC.ANLOG 1,000 UNIT/10 ML VIAL SUBCUT SCH (22:00)
[2019-10-31] MEDS: FAMOTIDINE 20 MG TABLET PO SCH (22:45)
[2019-10-31] MEDS ORDERED: INSULIN GLARGINE,HUM.REC.ANLOG 1,000 UNIT/10 ML VIAL (PYX) SUBCUT ONE (23:24)
[2019-11-01 06:37] LABS: ABSOLUTE EOSINOPHILS # (AUTO) 0.2 10^3/uL (0.0-0.6); ABSOLUTE LYMPHOCYTES (AUTO) 1.2 10^3/uL (0.5-4.7); ABSOLUTE MONOCYTES (AUTO) 0.4 10^3/uL (0.1-1.4); ABSOLUTE NEUT (AUTO) 2.5 10^3/uL (1.7-8.2); BASOPHILS % (AUTO) 0.3 % (0-2); EOSINOPHILS % (AUTO) 5.3 % (0-6); HEMATOCRIT 27.5 % (37.9-51.0); LYMPHOCYTES % (AUTO) 27.4 % (13-45); MEAN CORPUSCULAR HEMOGLOBIN 32.8 pg (27.0-33.4); MEAN CORPUSCULAR HGB CONC 36.8 g/dL (32.0-36.0); MEAN CORPUSCULAR VOLUME 89 fl (80-97); RED BLOOD COUNT 3.09 10^6/uL (4.35-5.55); RED CELL DISTRIBUTION WIDTH 13.3 % (11.5-14.0); TOTAL CELLS COUNTED % (AUTO) 100 %; WHITE BLOOD COUNT 4.4 10^3/uL (4.0-10.5)
[2019-11-01 06:52] LABS: ALBUMIN 3.1 g/dL (3.5-5.0); ALKALINE PHOSPHATASE 83 U/L (38-126); ANION GAP 7 (5-19); ASPARTATE AMINO TRANSFERASE 30 U/L (17-59); BILIRUBIN,TOTAL 1.1 mg/dL (0.2-1.3); BLOOD UREA NITROGEN 36 mg/dL (7-20); CALCIUM 8.3 mg/dL (8.4-10.2); CARBON DIOXIDE 20 mmol/L (22-30); CHLORIDE 108 mmol/L (98-107); CHOLESTEROL 109.36 mg/dL (0-200); GLUCOSE 124 mg/dL (75-110); PHOSPHORUS 3.4 mg/dL (2.5-4.5); POTASSIUM 4.5 mmol/L (3.6-5.0); TOTAL PROTEIN 6.3 g/dL (6.3-8.2); TRIGLYCERIDES 200 mg/dL (<150)
[2019-11-01] MEDS: NORMAL SALINE 1000 ML 1,000 ML IV PRN (07:02)
[2019-11-01 07:04] LABS: DIRECT LDL 44 mg/dL (<100)
[2019-11-01 07:38] LABS: HEMOGLOBIN 10.1 g/dL (13.5-17.0)
[2019-11-01 07:41] LABS: PLATELET COUNT 72 10^3/uL (150-450)
[2019-11-01] MEDS: INSULIN LISPRO 100 UNIT/ML 3 ML VIAL SUBCUT SCH ×2 (08:20→11:39)
[2019-11-01] MEDS ORDERED: LISINOPRIL 10 MG TABLET PO SCH (10:00)
[2019-11-01] MEDS ORDERED: (PENDING PHARMACY ID) (Spironolactone [Aldactone] 50 MG) PO SCH (10:00)
[2019-11-01] MEDS ORDERED: DOCUSATE SODIUM 100 MG CAPSULE PO SCH (10:00)
[2019-11-01] MEDS ORDERED: FUROSEMIDE 20 MG TABLET PO SCH (10:00)
[2019-11-01] MEDS ORDERED: SPIRONOLACTONE 25 MG TABLET PO SCH (10:00)
[2019-11-01] MEDS: FAMOTIDINE 20 MG TABLET PO SCH (10:48)
[2019-11-01 13:54] VITALS: BP 172/78
--- NOTE | 2019-11-02 10:30 | EKG REPORT ---
SEVERITY:- ABNORMAL ECG - SINUS RHYTHM RIGHT BUNDLE BRANCH BLOCK : Confirmed by: Pastor Deutsch 02-Nov-2019 10:30:03
--- NOTE | 2019-11-02 18:42 | PDOC DISCHARGE SUMMARY ---
Impression - Admit/DC Date/PCP Admission Date/Primary Care Provider: 10/31/19 14:54 ORLANDO CARRANZA MD Discharge Date: 11/01/19 - Discharge Diagnosis (1) Hypertension Is this a current diagnosis for this admission?: Yes (2) Cirrhosis of liver Is this a current diagnosis for this admission?: Yes (3) Acute kidney injury Is this a current diagnosis for this admission?: Yes (4) Uncontrolled diabetes mellitus Is this a current diagnosis for this admission?: Yes - Assessment Summary: We will put patient in the hospital for IV fluids start him on some Lantus insulin tonight putting him on a sliding scale. No signs of DKA and anion gap is 12. Potassium 5.1 creatinine 2.45 BUN of 44. Hemoglobin A1c is greater than 9 Patient will need to have his cirrhosis looked at further as an outpatient although he is already on Aldactone as well as Lasix All of patient's questions were answered and he appears to be medically stable 11/01/2019 patient is medically stable and asking to go home today. Temperature 97.1 pulse 60 blood pressure 132/79 100% saturation on room air. CBC is normal amylase of 52 lipase 289 ammonia 22 BUN on admission was 44 it is now 36 creatinine on admission was 2.45 it is now 1.79 anion gap of 7 Glucose levels are running in the mid 100s Patient had diabetic teaching by the nurses. Patient has used insulin in the past She was discharged home on sliding scale of insulin Humalog as well as Lantus 14 units nightly Patient to follow-up with his primary care to have his insulin dosage adjusted. Patient also needs further work-up concerning his history of cirrhosis of the liver.. Seems satisfied with his visit and is medically stable. Patient was originally admitted for diabetes uncontrolled secondary to not taking medication - Additional Information Resuscitation Status: Full Code Discharge Diet: Diabetic Discharge Activity: Activity As Tolerated Referrals: ORLANDO CARRANZA MD [Primary Care Provider] - Follow up as needed Prescriptions: Insulin Lispro [Humalog Insulin (Lispro) 100 unit/mL] 0 - 12 unit SUBCUT ACHS 14 Days #1 unit Insulin Glargine,Hum.rec.anlog [Lantus Insulin 100 Unit/1 ml 10 ml] 14 unit SUBCUT QHS 30 Days #1 unit Home Medications: Furosemide [Lasix 20 mg Tablet] 20 mg PO DAILY 10/31/19 Gabapentin [Neurontin 300 mg Capsule] 600 mg PO QHS 10/31/19 Lisinopril [Prinivil 10 mg Tablet] 10 mg PO DAILY 10/31/19 Potassium Chloride [Klor-Con 10 Meq Tablet ER] 20 meq PO DAILY 10/31/19 Simvastatin [Zocor 40 mg Tablet] 40 mg PO QHS 10/31/19 Spironolactone [Aldactone] 50 mg PO DAILY 10/31/19 Acetaminophen [Tylenol 325 mg Tablet] 650 mg PO Q4HP PRN tablet 11/01/19 Docusate Sodium [Colace 100 mg Capsule] 100 mg PO DAILY capsule 11/01/19 Famotidine [Pepcid 20 mg Tablet] 20 mg PO Q12 tablet 11/01/19 Insulin Glargine,Hum.rec.anlog [Lantus Insulin 100 Unit/1 ml 10 ml] 14 unit SUBCUT QHS 30 Days #1 unit 11/01/19 Insulin Lispro [Humalog Insulin (Lispro) 100 unit/mL] 0 - 12 unit SUBCUT ACHS 14 Days #1 unit 11/01/19 Mag Hydrox/Al Hydrox/Simeth [Maalox Plus Susp 30 Udcup] 30 ml PO Q6HP PRN udc 11/01/19 History of Present Illiness History of Present Illness: SURAJ ENNIS is a 69 year old male comes in after not having any of his medicine for diabetes for probably close to 6 months to a year. She states he was told by his physicians that he no longer needed it that his diabetes was under control. Patient denies vomiting , states that for the last week or 2 has had blurred vision much like when he was first diagnosed with diabetes 10 years ago. Patient states that when he was last taking medicine he was on some sort of insulin pen that he took weekly. Patient also states about 6 months ago he was told he had cirrhosis of the liver but he says he is never drank any alcohol.. He has not been to see a emt i/85 yet. 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 Only other medical problem includes hypertension. Physical Exam Vital Signs: Temp Pulse Resp BP Pulse Ox 97.9 F 62 17 132/79 H 98 11/01/19 13:17 11/01/19 13:17 11/01/19 13:17 11/01/19 13:17 11/01/19 13:17 Intake & Output 11/01/19 11/02/19 11/03/19 06:59 06:59 06:59 Intake Total 4765 Balance 4765 Weight 74.1 kg Results Laboratory Results: WBC 4.4 10^3/uL (4.0-10.5) 11/01/19 05:33 RBC 3.09 10^6/uL (4.35-5.55) L 11/01/19 05:33 Hgb 10.1 g/dL (13.5-17.0) L D 11/01/19 05:33 Hct 27.5 % (37.9-51.0) L 11/01/19 05:33 MCV 89 fl (80-97) 11/01/19 05:33 MCH 32.8 pg (27.0-33.4) 11/01/19 05:33 MCHC 36.8 g/dL (32.0-36.0) H 11/01/19 05:33 RDW 13.3 % (11.5-14.0) 11/01/19 05:33 Plt Count 72 10^3/uL (150-450) L 11/01/19 05:33 Lymph % (Auto) 27.4 % (13-45) 11/01/19 05:33 [place] % (Auto) 9.0 % (3-13) 11/01/19 05:33 Eos % (Auto) 5.3 % (0-6) 11/01/19 05:33 Baso % (Auto) 0.3 % (0-2) 11/01/19 05:33 Absolute Neuts (auto) 2.5 10^3/uL (1.7-8.2) 11/01/19 05:33 Absolute Lymphs (auto) 1.2 10^3/uL (0.5-4.7) 11/01/19 05:33 Absolute Monos (auto) 0.4 10^3/uL (0.1-1.4) 11/01/19 05:33 Absolute Eos (auto) 0.2 10^3/uL (0.0-0.6) 11/01/19 05:33 Absolute Basos (auto) 0.0 10^3/uL (0.0-0.2) 11/01/19 05:33 Seg Neutrophils % 58.0 % (42-78) 11/01/19 05:33 PT 16.4 SEC (11.4-15.4) H 10/31/19 16:15 INR 1.31 10/31/19 16:15 APTT 34.5 SEC (23.5-35.8) 11/01/19 05:33 VBG pH 7.40 (7.30-7.42) 10/31/19 12:28 VBG pCO2 38.8 mmHg (35-63) 10/31/19 12:28 VBG HCO3 23.3 mmol/L (20-32) 10/31/19 12:28 VBG Base Excess -1.2 mmol/L 10/31/19 12:28 Sodium 134.9 mmol/L (137-145) L 11/01/19 05:33 Potassium 4.5 mmol/L (3.6-5.0) 11/01/19 05:33 Chloride 108 mmol/L (98-107) H 11/01/19 05:33 Carbon Dioxide 20 mmol/L (22-30) L 11/01/19 05:33 Anion Gap 7 (5-19) 11/01/19 05:33 BUN 36 mg/dL (7-20) H 11/01/19 05:33 Creatinine 1.79 mg/dL (0.52-1.25) H 11/01/19 05:33 Est GFR ( Amer) 46 (>60) L 11/01/19 05:33 Est GFR (MDRD) Non-Af 38 (>60) L 11/01/19 05:33 Glucose 124 mg/dL (75-110) H 11/01/19 05:33 POC Glucose 272 mg/dL (70-110) H 11/01/19 10:39 Hemoglobin A1c % 9.0 % (4.7-6.0) H 10/31/19 12:28 Calcium 8.3 mg/dL (8.4-10.2) L 11/01/19 05:33 Phosphorus 3.4 mg/dL (2.5-4.5) 11/01/19 05:33 Magnesium 1.4 mg/dL (1.6-2.3) L 11/01/19 05:33 Total Bilirubin 1.1 mg/dL (0.2-1.3) 11/01/19 05:33 Direct Bilirubin 0.0 mg/dL (0.0-0.4) 11/01/19 05:33 Neonat Total Bilirubin Not Reportable 11/01/19 05:33 Neonat Direct Bilirubin Not Reportable 11/01/19 05:33 Neonat Indirect Bili Not Reportable 11/01/19 05:33 AST 30 U/L (17-59) 11/01/19 05:33 ALT 31 U/L (<50) 11/01/19 05:33 Alkaline Phosphatase 83 U/L (38-126) 11/01/19 05:33 Ammonia 22.4 umol/L (9-33) 10/31/19 16:15 Total Protein 6.3 g/dL (6.3-8.2) 11/01/19 05:33 Albumin 3.1 g/dL (3.5-5.0) L 11/01/19 05:33 Triglycerides 200 mg/dL (<150) H 11/01/19 05:33 Cholesterol 109.36 mg/dL (0-200) 11/01/19 05:33 LDL Cholesterol Direct 44 mg/dL (<100) 11/01/19 05:33 VLDL Cholesterol 40.0 mg/dL (10-31) H 11/01/19 05:33 HDL Cholesterol 29 mg/dL (>40) L 11/01/19 05:33 Amylase 52 U/L (30-110) 10/31/19 16:15 Lipase 289.7 U/L (23-300) 10/31/19 16:15 TSH 2.02 uIU/mL (0.47-4.68) 10/31/19 16:15 Urine Color YELLOW 10/31/19 12:30 Urine Appearance CLEAR 10/31/19 12:30 Urine pH 5.0 (5.0-9.0) 10/31/19 12:30 Ur Specific Ault 1.018 10/31/19 12:30 Urine Protein NEGATIVE mg/dL (NEGATIVE) 10/31/19 12:30 Urine Glucose (UA) >=500 mg/dL (NEGATIVE) H 10/31/19 12:30 Urine Ketones NEGATIVE mg/dL (NEGATIVE) 10/31/19 12:30 Urine Blood NEGATIVE (NEGATIVE) 10/31/19 12:30 Urine Nitrite NEGATIVE (NEGATIVE) 10/31/19 12:30 Urine Bilirubin NEGATIVE (NEGATIVE) 10/31/19 12:30 Urine Urobilinogen NEGATIVE mg/dL (<2.0) 10/31/19 12:30 Ur Leukocyte Esterase NEGATIVE (NEGATIVE) 10/31/19 12:30 Urine WBC (Auto) 1 /HPF 10/31/19 12:30 Urine RBC (Auto) 0 /HPF 10/31/19 12:30 U Hyaline Cast (Auto) 4 /LPF 10/31/19 12:30 Urine Ascorbic Acid NEGATIVE (NEGATIVE) 10/31/19 12:30 Impressions: Chest X-Ray 10/31/19 15:48 IMPRESSION: NO ACUTE RADIOGRAPHIC FINDING IN THE CHEST. Stroke Is this a Stroke Patient?: No Acute Heart Failure - Is this a Heart Failure Patient?: No
== END 2019-11-01 13:45 | disposition home or self-care (01) ==
LOC: ER 11:46 → EH 14:54 → 4S 16:28
PROVIDERS: ADMIT Hospitalist; ATTEND Physician Assistant
DX: E11.65 Type 2 diabetes mellitus with hyperglycemia (principal); N17.9 Acute kidney failure, unspecified; I10 Essential (primary) hypertension; K74.60 Unspecified cirrhosis of liver; D64.9 Anemia, unspecified; Z91.14 Patient's other noncompliance with medication regimen
CPT/HCPCS: 99285; 96360; 96361; 36415 ×2; 82962 ×2; 82140; 82150; 83690; 83735; 84100; 84443; 85025 ×2; 85610; 85730; 80053 ×2; 81001; 83036; 82803; 80061; 71046; 93005; 93010; G0378 ×2; A9270 ×11; J7030 ×2; J1815

== ENCOUNTER 2019-12-30 16:58 | Emergency (ER) | payer MEDICARE, MEDICAID ==
--- NOTE | 2019-12-30 18:38 | ER Document Report ---
ED Medical Screen (RME) - General Chief Complaint: Abnormal Lab Results Stated Complaint: ABNORMAL LABS - DR REFERRED Time Seen by Provider: 12/30/19 18:19 Primary Care Provider: ORLANDO CARRANZA MD [Primary Care Provider] - Follow up as needed TRAVEL OUTSIDE OF THE [place] IN LAST 30 DAYS: No - HPI Notes: 12/30/19 18:34 69-year-old male with a history of diabetes presents to the emergency room by his doctor for hyperkalemia and chest pain. States that his level was 5.7. Patient states he has been taking oral potassium replacement pills daily. His doctor called him at 4 PM today and told him that his potassium was elevated to come to the emergency room. Patient states that yesterday he started with chest pain both sides of his chest, lasted for approximately 1 hour and then went away. Denies any radiation of pain. Denies any history of MIs. Reports both his parents from a "aneurysm of the heart". Non-smoker. Is currently denying any chest pain shortness of breath nausea vomiting or diarrhea. I have greeted and performed a rapid initial assessment of this patient. A comprehensive ED assessment and evaluation of the patient, analysis of test results and completion of the medical decision making process will be conducted by additional ED providers. PHYSICAL EXAMINATION: GENERAL: Well-appearing, well-nourished and in no acute distress. HEAD: Atraumatic, normocephalic. EYES: Pupils equal round extraocular movements intact, conjunctiva are normal. NECK: Normal range of motion CV: s1, s2 regular LUNGS: No respiratory distress - Related Data Allergies/Adverse Reactions: oxycodone Allergy (Verified 10/31/19 12:09) Generalized Itching Penicillins Allergy (Verified 05/12/13 11:10) Past Medical History - Social History Frequency of alcohol use: None Drug Abuse: None - Past Medical History Cardiac Medical History: Reports: Hx Hypertension Endocrine Medical History: Reports: Hx Diabetes Mellitus Type 1, Hx Diabetes Mellitus Type 2 GI Medical History: Reports: Hx Cirrhosis Psychiatric Medical History: Denies: Hx Depression - Immunizations Hx Diphtheria, Pertussis, Tetanus Vaccination: Yes Physical Exam - Vital signs Vitals: Temp Pulse Resp BP Pulse Ox 97.8 F 61 18 128/54 H 97 12/30/19 17:06 12/30/19 17:06 12/30/19 17:06 12/30/19 17:06 12/30/19 17:06 Course - Vital Signs Vital signs: Temp Pulse Resp BP Pulse Ox 97.8 F 61 18 128/54 H 97 12/30/19 17:06 12/30/19 17:06 12/30/19 17:06 12/30/19 17:06 12/30/19 17:06 Doctor's Discharge - Discharge Referrals: ORLANDO CARRANZA MD [Primary Care Provider] - Follow up as needed
--- NOTE | 2019-12-30 19:03 | RADIOLOGY REPORT (SQ) ---
EXAM DESCRIPTION: CHEST SINGLE VIEW IMAGES COMPLETED DATE/TIME: 12/30/2019 6:50 pm REASON FOR STUDY: chest pain COMPARISON: 10/31/2019 EXAM PARAMETERS: NUMBER OF VIEWS: One view. TECHNIQUE: Single frontal radiographic view of the chest acquired. RADIATION DOSE: NA LIMITATIONS: None. FINDINGS: LUNGS AND PLEURA: No opacities, masses or pneumothorax. No pleural effusion. MEDIASTINUM AND HILAR STRUCTURES: No masses. Contour normal. HEART AND VASCULAR STRUCTURES: No appearance. Normal vasculature. BONES: No acute findings. HARDWARE: None in the chest. OTHER: No other significant finding. IMPRESSION: 1. No significant interval changes since the prior examination dated 10/31/2019. No acu te findings. TECHNICAL DOCUMENTATION: JOB ID: [id number] 2010 [employer]- All Rights Reserved Reading location - IP/workstation name: [email or web address]
[2019-12-30 19:26] LABS: ABSOLUTE EOSINOPHILS # (AUTO) 0.4 10^3/uL (0.0-0.6); ABSOLUTE LYMPHOCYTES (AUTO) 1.3 10^3/uL (0.5-4.7); ABSOLUTE MONOCYTES (AUTO) 0.7 10^3/uL (0.1-1.4); ABSOLUTE NEUT (AUTO) 3.3 10^3/uL (1.7-8.2); BASOPHILS % (AUTO) 0.7 % (0-2); EOSINOPHILS % (AUTO) 6.3 % (0-6); HEMATOCRIT 30.8 % (37.9-51.0); HEMOGLOBIN 11.1 g/dL (13.5-17.0); LYMPHOCYTES % (AUTO) 22.9 % (13-45); MEAN CORPUSCULAR HEMOGLOBIN 33.7 pg (27.0-33.4); MEAN CORPUSCULAR HGB CONC 35.9 g/dL (32.0-36.0); MEAN CORPUSCULAR VOLUME 94 fl (80-97); MONOCYTES % (AUTO) 11.9 % (3-13); PLATELET COUNT 129 10^3/uL (150-450); RED BLOOD COUNT 3.29 10^6/uL (4.35-5.55); RED CELL DISTRIBUTION WIDTH 14.2 % (11.5-14.0); SEGMENTED NEUTROPHILS % (AUTO) 58.2 % (42-78); TOTAL CELLS COUNTED % (AUTO) 100 %; WHITE BLOOD COUNT 5.6 10^3/uL (4.0-10.5)
[2019-12-30 19:30] LABS: APPEARANCE,URINE CLEAR; BILIRUBIN,URINE NEGATIVE (NEGATIVE); COLOR,URINE YELLOW; GLUCOSE, URINE NEGATIVE (NEGATIVE); KETONES,URINE NEGATIVE (NEGATIVE); LEUKOCYTE ESTERASE,URINE NEGATIVE (NEGATIVE); NITRITE,URINE NEGATIVE (NEGATIVE); PROTEIN,URINE NEGATIVE (NEGATIVE); URINE SPECIFIC GRAVITY 1.018; UROBILINOGEN,URINE NEGATIVE mg/dL (<2.0)
[2019-12-30 19:47] LABS: ALBUMIN 4.2 g/dL (3.5-5.0); ALKALINE PHOSPHATASE 89 U/L (38-126); ANION GAP 7 (5-19); ASPARTATE AMINO TRANSFERASE 34 U/L (17-59); BILIRUBIN,DIRECT 0.1 mg/dL (0.0-0.4); BILIRUBIN,TOTAL 0.6 mg/dL (0.2-1.3); BLOOD UREA NITROGEN 50 mg/dL (7-20); CARBON DIOXIDE 20 mmol/L (22-30); CHLORIDE 111 mmol/L (98-107); GLUCOSE 150 mg/dL (75-110); POTASSIUM 5.5 mmol/L (3.6-5.0)
[2019-12-30 21:28] VITALS: BP 152/69
--- NOTE | 2019-12-30 21:43 | EKG REPORT ---
SEVERITY:- ABNORMAL ECG - SINUS BRADYCARDIA FIRST DEGREE AV BLOCK RIGHT BUNDLE BRANCH BLOCK : Confirmed by: Cornell Donahue MD 30-Dec-2019 21:42:55
== END 2019-12-30 22:00 | disposition left against medical advice (07) ==
LOC: ER 16:58
DX: E87.5 Hyperkalemia (principal); R07.9 Chest pain, unspecified; I10 Essential (primary) hypertension; E11.9 Type 2 diabetes mellitus without complications; Z79.899 Other long term (current) drug therapy; Z88.6 Allergy status to analgesic agent; Z88.5 Allergy status to narcotic agent; Z88.0 Allergy status to penicillin; Z53.20 Procedure and treatment not carried out because of patient's decision for unspecified reasons
CPT/HCPCS: 36415; 71045; 80053; 81001; 82962; 84484; 85025; 93005; 93010; 99281

== ENCOUNTER 2019-12-31 08:10 | Observation (INO) | payer MEDICARE, MEDICAID ==
[2019-12-31 09:38] LABS: ABSOLUTE EOSINOPHILS # (AUTO) 0.3 10^3/uL (0.0-0.6); ABSOLUTE MONOCYTES (AUTO) 0.5 10^3/uL (0.1-1.4); ABSOLUTE NEUT (AUTO) 3.3 10^3/uL (1.7-8.2); BASOPHILS % (AUTO) 0.6 % (0-2); EOSINOPHILS % (AUTO) 6.6 % (0-6); HEMATOCRIT 29.8 % (37.9-51.0); HEMOGLOBIN 10.6 g/dL (13.5-17.0); LYMPHOCYTES % (AUTO) 20.1 % (13-45); MEAN CORPUSCULAR HGB CONC 35.4 g/dL (32.0-36.0); MEAN CORPUSCULAR VOLUME 93 fl (80-97); MONOCYTES % (AUTO) 8.8 % (3-13); PLATELET COUNT 102 10^3/uL (150-450); RED CELL DISTRIBUTION WIDTH 13.9 % (11.5-14.0); SEGMENTED NEUTROPHILS % (AUTO) 63.9 % (42-78); TOTAL CELLS COUNTED % (AUTO) 100 %; WHITE BLOOD COUNT 5.1 10^3/uL (4.0-10.5)
[2019-12-31 09:50] LABS: ALBUMIN 4.1 g/dL (3.5-5.0); ALKALINE PHOSPHATASE 84 U/L (38-126); ANION GAP 7 (5-19); ASPARTATE AMINO TRANSFERASE 34 U/L (17-59); BILIRUBIN,TOTAL 0.8 mg/dL (0.2-1.3); BLOOD UREA NITROGEN 52 mg/dL (7-20); CALCIUM 9.5 mg/dL (8.4-10.2); CARBON DIOXIDE 19 mmol/L (22-30); CHLORIDE 112 mmol/L (98-107); GLUCOSE 169 mg/dL (75-110); TOTAL PROTEIN 7.7 g/dL (6.3-8.2)
[2019-12-31] MEDS ORDERED: CALCIUM GLUCONATE 1000 MG/10 ML INJ IV ONE (10:12)
[2019-12-31] MEDS ORDERED: SODIUM POLYSTYRENE SULFONATE 15 GM/60 ML PO ONE (10:12)
[2019-12-31] MEDS ORDERED: DEXTROSE 50%-WATER 25 GM/50 ML DISP.SYRIN IV ONE (10:12)
[2019-12-31] MEDS ORDERED: INSULIN REG, HUMAN 100 UNIT/ML 3 ML VIAL (PYX) IV ONE (10:12)
[2019-12-31] MEDS ORDERED: SODIUM BICARBONATE 8.4% INJ 50 MEQ/50 ML DISP.SYRIN IV ONE (10:13)
--- NOTE | 2019-12-31 10:13 | ER Document Report ---
ED General - General Chief Complaint: Abnormal Lab Results Stated Complaint: ABNORMAL LABS Time Seen by Provider: 12/31/19 09:57 TRAVEL OUTSIDE OF THE [place] IN LAST 30 DAYS: No - HPI Notes: Chief complaint: Elevated potassium level HPI: 69-year-old male with a history of diabetes presents to the emergency room referred by his doctor for hyperkalemia and leg weakness. Patient was seen at triage here in the emergency department yesterday with a potassium of 5.7. He left without receiving further treatment. He spoke with his family physician, Dr. Pretty, and was advised he should return today. Patient states he has been taking oral potassium replacement pills daily up until Sunday when they were stopped by his primary care physician. Patient reports that his legs feel very weak when he tries to stand and walk. Patient denies any chest pain shortness of breath nausea vomiting or diarrhea. - Related Data Allergies/Adverse Reactions: fluticasone [From Flonase] Allergy (Verified 12/31/19 10:16) oxycodone Allergy (Verified 12/31/19 10:16) Generalized Itching Penicillins Allergy (Verified 12/31/19 10:16) Past Medical History - General Information source: Patient, [facility], [facility] Records - Social History Smoking Status: Never Smoker Chew tobacco use (# tins/day): No Frequency of alcohol use: None Drug Abuse: None Family History: Reviewed & Not Pertinent - Past Medical History Cardiac Medical History: Reports: Hx Hypertension Endocrine Medical History: Reports: Hx Diabetes Mellitus Type 1, Hx Diabetes Mellitus Type 2 GI Medical History: Reports: Hx Cirrhosis Psychiatric Medical History: Denies: Hx Depression - Immunizations Hx Diphtheria, Pertussis, Tetanus Vaccination: Yes Review of Systems - Review of Systems Notes: Constitutional: Negative for fever. HENT: Negative for sore throat. Eyes: Negative for visual changes. Cardiovascular: Negative for chest pain. Respiratory: Negative for shortness of breath. Gastrointestinal: Negative for abdominal pain, vomiting or diarrhea. Genitourinary: Negative for dysuria. Musculoskeletal: Leg weakness. Skin: Negative for rash. Neurological: Negative for headaches, weakness or numbness. 10 point ROS negative except as marked above and in HPI. Physical Exam - Vital signs Vitals: Temp Pulse Resp BP Pulse Ox 98.3 F 56 L 18 117/63 96 12/31/19 08:15 12/31/19 08:15 12/31/19 08:15 12/31/19 08:15 12/31/19 08:15 - Notes Notes: GENERAL: Slender male approximately stated age currently appearing in no acute distress. SKIN: Good turgor no rashes. HEAD: Normocephalic atraumatic. EYES: PERRLA. EOMI. Conjunctivae and sclerae clear. EARS: CANALS AND TMS CLEAR. NOSE: CLEAR. MOUTH: Moist mucosa. Good dentition. No stridor or edema. No drooling. NECK: Supple. No masses or thyromegaly. No adenopathy. Carotids 2+ without bruits. No JVD. BACK: Symmetrical without tenderness. CHEST: Respirations unlabored. Breath sounds clear and symmetrical. HEART: Regular rhythm. No murmur gallop or rub. ABDOMEN: Soft nontender without masses, organomegaly or rebound. Bowel sounds normally active. No bruits. GENITALIA: Deferred. EXTREMITIES: No edema. No calf tenderness. Cap refill less than 1.5 seconds. Dorsalis pedis and posterior tibial pulses 3+ and symmetrical. NEUROLOGICAL: GCS 15. Alert and oriented x3. Fluent speech. Cranial nerves II through XII intact. Sensorimotor and cerebellar normal. Normal tone. PSYCHIATRIC: Flat affect. Course - Re-evaluation Re-evalutation: 12/31/19 10:32 Patient has significant hyperkalemia with a potassium of 6. Review of his current meds shows that he has been taking a combination of spironolactone and oral potassium. He also has a baseline creatinine around 2.6. He is having significant muscular symptoms related to hyperkalemia. He also has changes on his EKG including flattening of the P wave and a first-degree AV block. These are unchanged from his prior tracing yesterday but I unfortunately do not have any older tracings to compare. I have given the patient oral Kayexalate. I have given him IV meds including glucose, insulin, calcium gluconate and sodium bicarbonate. I will asked the hospitalist to admit him to a telemetry bed. 12/31/19 10:[address] Corey. - Vital Signs Vital signs: Temp Pulse Resp BP Pulse Ox 98.3 F 56 L 18 117/63 96 12/31/19 09:06 12/31/19 08:15 12/31/19 08:15 12/31/19 08:15 12/31/19 08:15 - Laboratory Result Diagrams: 12/31/19 09:15 12/31/19 09:15 Laboratory results interpreted by me: 12/31/19 12/31/19 09:15 09:15 RBC 3.20 L Hgb 10.6 L Hct 29.8 L Plt Count 102 L Eos % (Auto) 6.6 H Potassium 6.0 H* Chloride 112 H Carbon Dioxide 19 L BUN 52 H Creatinine 2.65 H Est GFR ( Amer) 29 L Est GFR (MDRD) Non-Af 24 L Glucose 169 H - EKG Interpretation by Me Additional EKG results interpreted by me: 12/31/19 10:39 Twelve-lead EKG from 1022 hrs. is reviewed contemporaneously by me showing sinus bradycardia with a rate of 52 with some associated first-degree AV block. He also has a right bundle branch block present. There are no acute ST changes. This is compared to previous tracing from 12/30/2019 and is unchanged. There are no old tracings for comparison. Indication for current study: Hyperkalemia. Critical Care Note - Critical Care Note Total time excluding time spent on procedures (mins): 35 - Treatment of symptomatic critical hyperkalemia with EKG changes Discharge - Discharge Clinical Impression: Hyperkalemia, Renal insufficiency Disposition: ADMITTED INPATIENT Admitting Provider: Leora (Hospitalist) Unit Admitted: [facility]
--- NOTE | 2019-12-31 10:59 | RADIOLOGY REPORT (SQ) ---
EXAM DESCRIPTION: CHEST SINGLE VIEW IMAGES COMPLETED DATE/TIME: 12/31/2019 10:48 am REASON FOR STUDY: Renal insufficiency COMPARISON: 03/01/2020 EXAM PARAMETERS: NUMBER OF VIEWS: One view. TECHNIQUE: Single frontal radiographic view of the chest acquired. RADIATION DOSE: NA LIMITATIONS: None. FINDINGS: LUNGS AND PLEURA: No opacities, masses or pneumothorax. No pleural effusion. MEDIASTINUM AND HILAR STRUCTURES: No masses. Contour normal. HEART AND VASCULAR STRUCTURES: Normal heart size. Vascular calcifications. BONES: No acute findings. HARDWARE: None in the chest. OTHER: No other significant finding. IMPRESSION: No evidence of acute cardiopulmonary process. TECHNICAL DOCUMENTATION: JOB ID: [id number] 2010 [employer]- All Rights Reserved Reading location - IP/workstation name: [email or web address]
[2019-12-31] MEDS: ATENOLOL 50 MG TABLET PO SCH (11:03)
[2019-12-31] MEDS ORDERED: ONDANSETRON HCL INJ/PF 4 MG/2 ML SDV IV PRN (11:08)
[2019-12-31] MEDS ORDERED: LEVALBUTEROL HCL NEB 0.63 MG/3 ML AMPUL NEB PRN (11:08)
[2019-12-31] MEDS ORDERED: ACETAMINOPHEN 325 MG TABLET PO PRN (11:08)
[2019-12-31] MEDS ORDERED: DEXTROSE 50%-WATER 25 GM/50 ML DISP.SYRIN IV PRN ×2 (11:15)
[2019-12-31] MEDS ORDERED: DEXTROSE 40% GEL 15 GM TUBE PO PRN ×2 (11:15)
[2019-12-31] MEDS ORDERED: GLUCAGON,HUMAN RECOMB 1 MG INJ IM PRN (11:15)
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
--- NOTE | 2019-12-31 13:10 | EKG REPORT ---
SEVERITY:- ABNORMAL ECG - SINUS BRADYCARDIA FIRST DEGREE AV BLOCK RIGHT BUNDLE BRANCH BLOCK : Confirmed by: Cornell Donahue MD 31-Dec-2019 13:10:34
[2019-12-31 14:09] LABS: ALBUMIN 3.9 g/dL (3.5-5.0); ALKALINE PHOSPHATASE 86 U/L (38-126); ANION GAP 7 (5-19); ASPARTATE AMINO TRANSFERASE 31 U/L (17-59); BILIRUBIN,TOTAL 0.7 mg/dL (0.2-1.3); BLOOD UREA NITROGEN 50 mg/dL (7-20); CALCIUM 9.9 mg/dL (8.4-10.2); CARBON DIOXIDE 20 mmol/L (22-30); CHLORIDE 113 mmol/L (98-107); GLUCOSE 114 mg/dL (75-110); POTASSIUM 5.2 mmol/L (3.6-5.0); TOTAL PROTEIN 7.3 g/dL (6.3-8.2)
[2019-12-31] MEDS: INSULIN REG, HUMAN 100 UNIT/ML 3 ML VIAL (PYX) SUBCUT SCH ×2 (17:12→21:25)
[2019-12-31] MEDS: FAMOTIDINE 20 MG TABLET PO SCH (21:24)
[2019-12-31] MEDS ORDERED: GABAPENTIN 300 MG CAPSULE PO SCH (22:00)
[2019-12-31] MEDS ORDERED: SIMVASTATIN 40 MG TABLET PO SCH (22:00)
[2020-01-01 06:22] LABS: ABSOLUTE MONOCYTES (AUTO) 0.5 10^3/uL (0.1-1.4); BASOPHILS % (AUTO) 0.5 % (0-2); TOTAL CELLS COUNTED % (AUTO) 100 %
[2020-01-01 06:34] LABS: ALBUMIN 3.7 g/dL (3.5-5.0); ALKALINE PHOSPHATASE 73 U/L (38-126); ANION GAP 7 (5-19); ASPARTATE AMINO TRANSFERASE 33 U/L (17-59); BILIRUBIN,TOTAL 0.7 mg/dL (0.2-1.3); BLOOD UREA NITROGEN 46 mg/dL (7-20); CALCIUM 9.2 mg/dL (8.4-10.2); CARBON DIOXIDE 20 mmol/L (22-30); CHLORIDE 112 mmol/L (98-107); CHOLESTEROL 134.74 mg/dL (0-200); GLUCOSE 111 mg/dL (75-110); POTASSIUM 5.2 mmol/L (3.6-5.0); TOTAL PROTEIN 7.2 g/dL (6.3-8.2); TRIGLYCERIDES 197 mg/dL (<150)
[2020-01-01 06:37] LABS: HEMOGLOBIN 10.2 g/dL (13.5-17.0); RED BLOOD COUNT 3.09 10^6/uL (4.35-5.55); WHITE BLOOD COUNT 4.6 10^3/uL (4.0-10.5)
[2020-01-01 06:38] LABS: ABSOLUTE NEUT (AUTO) 2.8 10^3/uL (1.7-8.2); EOSINOPHILS % (AUTO) 4.9 % (0-6); HEMATOCRIT 28.5 % (37.9-51.0); LYMPHOCYTES % (AUTO) 22.1 % (13-45); MEAN CORPUSCULAR HEMOGLOBIN 32.9 pg (27.0-33.4); MEAN CORPUSCULAR HGB CONC 35.6 g/dL (32.0-36.0); MEAN CORPUSCULAR VOLUME 92 fl (80-97); MONOCYTES % (AUTO) 10.9 % (3-13); RED CELL DISTRIBUTION WIDTH 13.8 % (11.5-14.0); SEGMENTED NEUTROPHILS % (AUTO) 61.6 % (42-78)
[2020-01-01 06:39] LABS: ABSOLUTE EOSINOPHILS # (AUTO) 0.2 10^3/uL (0.0-0.6)
[2020-01-01 06:45] LABS: DIRECT LDL 57 mg/dL (<100)
[2020-01-01 06:49] LABS: VLDL CHOLESTEROL 39.4 mg/dL (10-31)
[2020-01-01 06:57] LABS: PLATELET COUNT 83 10^3/uL (150-450)
[2020-01-01] MEDS: INSULIN REG, HUMAN 100 UNIT/ML 3 ML VIAL (PYX) SUBCUT SCH (07:43)
[2020-01-01 08:49] VITALS: BP 108/59
[2020-01-01] MEDS: ATENOLOL 50 MG TABLET PO SCH (09:05)
[2020-01-01] MEDS: FAMOTIDINE 20 MG TABLET PO SCH (09:05)
[2020-01-01] MEDS ORDERED: ENOXAPARIN SODIUM INJ 30 MG/0.3 ML DISP.SYRIN SUBCUT SCH (10:00)
[2020-01-01] MEDS ORDERED: (PENDING PHARMACY ID) (Atenolol [Atenolol] 100 MG) PO SCH (10:00)
[2020-01-01] MEDS ORDERED: FUROSEMIDE 20 MG TABLET PO SCH (10:00)
[2020-01-01] MEDS ORDERED: (PENDING PHARMACY ID) (Linagliptin [Tradjenta] 5 MG) PO SCH (10:00)
[2020-01-01] MEDS ORDERED: SITAGLIPTIN PHOSPHATE 50 MG TABLET PO SCH (10:00)
--- NOTE | 2020-01-01 13:16 | EKG REPORT ---
SEVERITY:- ABNORMAL ECG - SINUS BRADYCARDIA RIGHT BUNDLE BRANCH BLOCK : Confirmed by: Cornell Donahue MD 01-Jan-2020 13:15:56
--- NOTE | 2020-01-01 14:27 | PDOC DISCHARGE SUMMARY ---
Impression - Admit/DC Date/PCP Admission Date/Primary Care Provider: 12/31/19 10:54 Discharge Date: 01/01/20 - Discharge Diagnosis (1) Hyperkalemia Is this a current diagnosis for this admission?: Yes (2) Renal insufficiency Is this a current diagnosis for this admission?: No (3) Cirrhosis of liver Is this a current diagnosis for this admission?: No (4) Hypertension Is this a current diagnosis for this admission?: No (5) Diabetes Is this a current diagnosis for this admission?: No - Assessment Summary: 12/31/2019-patient came in with high potassium level 6.0 today admitted to [facility] as observation. Patient given Kayexalate, insulin 10 units IV, calcium gluconate, sodium bicarb IV push in the ER. Repeat EKG will be requested for this evening, serial troponins are requested. Patient is on lisinopril, spironolactone, potassium supplementations at home dose medications are on hold. Plan is to restart his furosemide at this time. Repeat potassium level requested for this evening and to recheck the labs tomorrow. He was placed on diabetic diet and insulin sliding scale was requested. 01/01/2020-patient came with hyperkalemia with no EKG changes. Latest serum potassium is 5.2 patient is on potassium, spironolactone, lisinopril at home advised to hold the medications until he has an appointment with the primary care physician. Patient agreed and verbalized the response. (2) Renal insufficiency Is this a current diagnosis for this admission?: No Plan: 12/31/2019-serum creatinine is 2.65 today is at baseline. To watch kidney function at this time. Renal ultrasound will be requested. 01/01/2020-serum creatinine today is 0.55. Stable. Patient has a stage III kidney disease. (3) Cirrhosis of liver Is this a current diagnosis for this admission?: No Plan: 12/31/2019-patient given history of fatty liver cirrhosis. He is nonalcoholic throughout his life.. (4) Hypertension Is this a current diagnosis for this admission?: No Plan: 12/31/2019-patient's blood pressure today is 135/67. Stable. To hold lisinopril, spironolactone because of hyperkalemia and to continue furosemide. 01/01/2020-blood pressure this morning is 110/60. Patient is not receiving lisinopril, spironolactone, potassium supplementations. (5) Diabetes Is this a current diagnosis for this admission?: No Plan: 12/31/2019-patient has history of type 2 diabetes mellitus blood sugar in the ER is 169. He is not on diabetic medications. To check for hemoglobin A1c and he was started on diabetic diet and insulin sliding scale is initiated. 01/01/2020-patient blood sugar is 107 today, hemoglobin A1c 6.7. Diet exercise weight loss lifestyle modifications discussed with the patient. - Additional Information Resuscitation Status: Do Not Resuscitate Discharge Diet: Diabetic Discharge Activity: Activity As Tolerated Referrals: ORLANDO CARRANZA MD [[facility]UNITY BASED STAFF] - Home Medications: Furosemide [Lasix 20 mg Tablet] 20 mg PO DAILY 10/31/19 Gabapentin [Neurontin 300 mg Capsule] 600 mg PO QHS 10/31/19 Simvastatin [Zocor 40 mg Tablet] 40 mg PO QHS 10/31/19 Atenolol 100 mg PO DAILY 12/31/19 Linagliptin [Tradjenta] 5 mg PO DAILY 12/31/19 History of Present Illiness History of Present Illness: SURAJ ENNIS is a 69 year old male with history of CKD stage III, hypertension, cirrhosis of the liver, diabetes mellitus came to the emergency room yesterday evening after referred by the primary care physician for abnormal labs. Potassium is 5.5 yesterday he was given Kayexalate and the patient left the hospital without treatment. He came back again today the lab work indicates potassium of 6 this morning. EKG was nonspecific. Patient was given a calcium gluconate, insulin 10 units IV, Kayexalate, sodium bicarb 1 ampoule and medical consult was called for admission to manage hyperkalemia. Patient is on spironolactone and potassium supplementations along with lisinopril at home. Those medications will be on hold. Hospital Course Hospital Course: 69 year old male with history of CKD stage III, hypertension, cirrhosis of the liver, diabetes mellitus came to the emergency room yesterday evening after referred by the primary care physician for abnormal labs. Potassium is 5.5 yesterday he was given Kayexalate and the patient left the hospital without treatment. He came back again today the lab work indicates potassium of 6 this morning. EKG was nonspecific. Patient was given a calcium gluconate, insulin 10 units IV, Kayexalate, sodium bicarb 1 ampoule and medical consult was called for admission to manage hyperkalemia. Patient is on spironolactone and potassium supplementations along with lisinopril at home. Those medications will be on hold. 01/01/2020-no acute events since admission. Serum potassium is 5.2. Improved. Patient is advised to continue to hold spironolactone, potassium, lisinopril at this time. He is willing to follow-up with PCP next week to discuss the medication use. Physical Exam Vital Signs: Temp Pulse Resp BP Pulse Ox 97.4 F 57 L 20 108/59 L 99 01/01/20 10:08 01/01/20 10:08 01/01/20 10:08 01/01/20 10:08 01/01/20 10:08 Intake & Output 12/31/19 01/01/20 01/02/20 06:59 06:59 06:59 Intake Total 736 Balance 736 Weight 76.5 kg General appearance: PRESENT: no acute distress, well-developed Head exam: PRESENT: atraumatic Eye exam: PRESENT: PERRLA Mouth exam: PRESENT: moist, tongue midline Teeth exam: PRESENT: poor dentation Neck exam: ABSENT: carotid bruit, JVD, lymphadenopathy, thyromegaly Respiratory exam: PRESENT: decreased breath sounds Pulses: PRESENT: normal dorsalis pedis pul GI/Abdominal exam: PRESENT: normal bowel sounds, soft. ABSENT: distended, guarding, mass, organolmegaly, rebound, tenderness Rectal exam: PRESENT: deferred Extremities exam: PRESENT: full ROM. ABSENT: calf tenderness, clubbing, pedal edema Neurological exam: PRESENT: alert, awake, oriented to person, oriented to place, oriented to time, oriented to situation, CN II-XII grossly intact. ABSENT: motor sensory deficit Psychiatric exam: PRESENT: appropriate affect, normal mood. ABSENT: homicidal ideation, suicidal ideation Skin exam: PRESENT: dry, intact, warm. ABSENT: cyanosis, rash Results Laboratory Results: WBC 4.6 10^3/uL (4.0-10.5) 01/01/20 05:45 RBC 3.09 10^6/uL (4.35-5.55) L 01/01/20 05:45 Hgb 10.2 g/dL (13.5-17.0) L 01/01/20 05:45 Hct 28.5 % (37.9-51.0) L 01/01/20 05:45 MCV 92 fl (80-97) 01/01/20 05:45 MCH 32.9 pg (27.0-33.4) 01/01/20 05:45 MCHC 35.6 g/dL (32.0-36.0) 01/01/20 05:45 RDW 13.8 % (11.5-14.0) 01/01/20 05:45 Plt Count 83 10^3/uL (150-450) L 01/01/20 05:45 Lymph % (Auto) 22.1 % (13-45) 01/01/20 05:45 Island % (Auto) 10.9 % (3-13) 01/01/20 05:45 Eos % (Auto) 4.9 % (0-6) 01/01/20 05:45 Baso % (Auto) 0.5 % (0-2) 01/01/20 05:45 Absolute Neuts (auto) 2.8 10^3/uL (1.7-8.2) 01/01/20 05:45 Absolute Lymphs (auto) 1.0 10^3/uL (0.5-4.7) 01/01/20 05:45 Absolute Monos (auto) 0.5 10^3/uL (0.1-1.4) 01/01/20 05:45 Absolute Eos (auto) 0.2 10^3/uL (0.0-0.6) 01/01/20 05:45 Absolute Basos (auto) 0.0 10^3/uL (0.0-0.2) 01/01/20 05:45 Seg Neutrophils % 61.6 % (42-78) 01/01/20 05:45 Sodium 139.4 mmol/L (137-145) 01/01/20 05:45 Potassium 5.2 mmol/L (3.6-5.0) H 01/01/20 05:45 Chloride 112 mmol/L (98-107) H 01/01/20 05:45 Carbon Dioxide 20 mmol/L (22-30) L 01/01/20 05:45 Anion Gap 7 (5-19) 01/01/20 05:45 BUN 46 mg/dL (7-20) H 01/01/20 05:45 Creatinine 2.55 mg/dL (0.52-1.25) H 01/01/20 05:45 Est GFR ( Amer) 31 (>60) L 01/01/20 05:45 Est GFR (MDRD) Non-Af 25 (>60) L 01/01/20 05:45 Glucose 111 mg/dL (75-110) H 01/01/20 05:45 POC Glucose 107 mg/dL (70-110) 01/01/20 07:28 Hemoglobin A1c % 6.7 % (4.7-6.0) H 01/01/20 05:45 Calcium 9.2 mg/dL (8.4-10.2) 01/01/20 05:45 Magnesium 1.7 mg/dL (1.6-2.3) 01/01/20 05:45 Total Bilirubin 0.7 mg/dL (0.2-1.3) 01/01/20 05:45 Direct Bilirubin 0.0 mg/dL (0.0-0.4) 01/01/20 05:45 Neonat Total Bilirubin Not Reportable 01/01/20 05:45 Neonat Direct Bilirubin Not Reportable 01/01/20 05:45 Neonat Indirect Bili Not Reportable 01/01/20 05:45 AST 33 U/L (17-59) 01/01/20 05:45 ALT 27 U/L (<50) 01/01/20 05:45 Alkaline Phosphatase 73 U/L (38-126) 01/01/20 05:45 Creatine Kinase 115 U/L (55-170) 12/31/19 23:32 Troponin I < 0.012 ng/mL 12/31/19 23:32 NT-Pro-B Natriuret Pep 488 pg/mL (<125) H 01/01/20 05:45 Total Protein 7.2 g/dL (6.3-8.2) 01/01/20 05:45 Albumin 3.7 g/dL (3.5-5.0) 01/01/20 05:45 Triglycerides 197 mg/dL (<150) H 01/01/20 05:45 Cholesterol 134.74 mg/dL (0-200) 01/01/20 05:45 LDL Cholesterol Direct 57 mg/dL (<100) 01/01/20 05:45 VLDL Cholesterol 39.4 mg/dL (10-31) H 01/01/20 05:45 HDL Cholesterol 37 mg/dL (>40) L 01/01/20 05:45 Lipase 540.2 U/L (23-300) H 01/01/20 05:45 TSH 4.66 uIU/mL (0.47-4.68) 01/01/20 05:45 12/31/19 12/31/19 12/31/19 09:15 17:34 23:32 Troponin I < 0.012 < 0.012 < 0.012 NT-Pro-B Natriuret Pep 01/01/20 05:45 Troponin I NT-Pro-B Natriuret Pep 488 H Impressions: Chest X-Ray 12/31/19 10:28 IMPRESSION: No evidence of acute cardiopulmonary process. Plan Plan of Treatment: Patient is advised to continue to hold her lisinopril, spironolactone, potassium. He was advised to follow-up with PCP for further management. Time Spent: Greater than 30 Minutes Stroke Is this a Stroke Patient?: No Acute Heart Failure - Is this a Heart Failure Patient?: No
== END 2020-01-01 11:35 | disposition home or self-care (01) ==
LOC: ER 08:10 → EH 10:54 → INTOOBSV 10:54 → 3W 15:49
PROVIDERS: ADMIT Internal Medicine; ATTEND Internal Medicine
DX: E87.5 Hyperkalemia (principal); N28.9 Disorder of kidney and ureter, unspecified; K76.0 Fatty (change of) liver, not elsewhere classified; E11.22 Type 2 diabetes mellitus with diabetic chronic kidney disease; I12.9 Hypertensive chronic kidney disease with stage 1 through stage 4 chronic kidney disease, or unspecified chronic kidney disease; N18.3 Chronic kidney disease, stage 3 (moderate); I44.0 Atrioventricular block, first degree; R00.1 Bradycardia, unspecified; Z79.899 Other long term (current) drug therapy; Z66 Do not resuscitate; Z96.7 Presence of other bone and tendon implants
CPT/HCPCS: 93005 ×3; 99281; 99291; 96374; 96375; 36415 ×3; 82962 ×3; 82550; 83690; 83735; 84443; 85025 ×3; 87070; 80053 ×3; 81001; 84484 ×2; 83036; 80061; 83880; 71045 ×2; 93010 ×2; G0378 ×3; A9270 ×10; J0610; J3490 ×4; J1815